=== PATIENT | female | born 1945 | race Caucasian/White ===

== ENCOUNTER → 2016-08-13 | Outpatient (CLI) | payer OTHER ==
--- NOTE | 2016-08-13 17:29 | MA ---
Screening Digital Mammogram With iCAD Analysis Clinical Indications: Routine screening. Her mother was diagnosed with breast cancer in her 80s. Technique: Standard cephalocaudal projections are obtained. Digital breast tomosynthesis was performe d in the MLO projection with reconstruction at 1.0 mm slice thickness and composite MLO views reconst ructed. This examination is processed by the iCAD computer aided detection system. Comparison: July 2015, July 2014, June 2013, May 2012, March 2011, January 2010. Breast density: Type B; Scattered fibroglandular densities. Findings: CAD was reviewed. No masses, suspicious calcifications or secondary signs of malignancy are seen. There has been no significant change in the appearance of either breast. Impression: Negative mammogram. BI-RADS 1. Recommendation: Routine mammographic screening in one year. [facility] will send a result letter to the patient. Negative mammography should not preclude additional workup of a clinically suspicious finding. The patient's information is entered into a reminder system with a target due date for her next mammo gram.
== END ==
LOC: FIMAGING 14:40
DX: Z12.31 Encounter for screening mammogram for malignant neoplasm of breast (principal); Z80.3 Family history of malignant neoplasm of breast
CPT/HCPCS: G0202

== ENCOUNTER → 2017-09-04 | Outpatient (CLI) | payer OTHER | LOC: FIMAGING 12:14 | PROVIDERS: ATTEND Nurse Practitioner | DX: M54.16 Radiculopathy, lumbar region (principal) ==

== ENCOUNTER → 2017-09-10 | Outpatient (CLI) | payer OTHER | LOC: FIMAGING 14:25 | PROVIDERS: ATTEND Family Medicine Sports Medicine | DX: Z12.31 Encounter for screening mammogram for malignant neoplasm of breast (principal); Z80.3 Family history of malignant neoplasm of breast ==

== ENCOUNTER 2017-09-12 10:55 | Inpatient (IN) | payer OTHER ==
--- NOTE | 2017-09-13 14:18 | CPEKG ---
Heart Rate: 68 RR Interval: 882 P-R Interval: 144 QRSD Interval: 96 QT Interval: 400 QTC Interval: 426 P [place]: 43 QRS [place]: 9 T Wave [place]: 8 EKG Severity - NORMAL ECG - EKG Impression: SINUS RHYTHM Electronically Signed By: Frantz Hassan 14-Sep-2017 08:22:54
[2017-09-16] MEDS ORDERED: ACETAMINOPHEN 500 MG TAB PO ONE (06:08)
[2017-09-16] MEDS ORDERED: GABAPENTIN 300 MG CAP PO ONE (06:08)
[2017-09-16] MEDS ORDERED: ceFAZolin 2 GM/SWFI 2 GM/20 ML SYR IVP ONE (06:08)
[2017-09-16] MEDS ORDERED: LIDOCAINE 1% 2 ML INJ ID PRN (06:10)
[2017-09-16] MEDS ORDERED: LR 1,000 ML IV ONE (06:10)
[2017-09-16] MEDS ORDERED: CHLORHEXIDINE GLUC HIBICLENS 118 ML BTL TP ONE (06:27)
[2017-09-16] MEDS ORDERED: BUPIVACAINE 0.25% 30 ML SDV ONE ×2 (06:27→08:33)
[2017-09-16] MEDS ORDERED: THROMBIN (BOVINE) 5,000 UNIT VIAL TP ONE (06:27)
[2017-09-16] MEDS ORDERED: BACITRACIN 50,000 UNITS/10 ML SYR IRR ONE (06:28)
--- NOTE | 2017-09-16 06:52 | PDANEPAE ---
ANE Past Medical History - Cardiovascular History Hx Hypertension: Yes Hx Arrhythmias: No Hx Chest Pain: No Hx Coronary Artery / Peripheral Vascular Disease: No Hx CHF / Valvular Disease: No Hx Palpitations: No - Pulmonary History Hx COPD: No Hx Asthma/Reactive Airway Disease: No Hx Recent Upper Respiratory Infection: No Hx Oxygen in Use at Home: No Hx Sleep Apnea: No Sleep Apnea Screening Result - Last Documented: Negative - Neurologic History Hx Cerebrovascular Accident: No Hx Seizures: No Hx Dementia: No - Endocrine History Hx Diabetes: No Hypothyroid: No Hyperthyroid: No Obesity: yes, mild - Renal History Hx Renal Disorders: No - Liver History Hx Hepatic Disorders: No - Neurological & Psychiatric Hx Hx Neurological and Psychiatric Disorders: Yes Neurological / Psychiatric History Comment: fibromyalgia - Cancer History Hx Cancer: Yes Cancer History Comment: basal cell cancer - Congenital Disorder History Hx Congenital Disorders: No - GI History GERD: moderate Hx Gastrointestinal Disorders: Yes Gastrointestinal History Comment: reflux gerd - Other Health History Other Health History: none - Chronic Pain History Chronic Pain: Yes (daily LUA) - Surgical History Prior Surgeries: none ANE Review of Systems Review of Systems: - Exercise capacity METS (RN): 4 METS ANE Patient History - Allergies Allergies/Adverse Reactions: No Known Drug Allergies Allergy (Verified 09/16/17 06:15) bandaid Adverse Reaction (Mild, Uncoded 09/03/17 15:26) - Home Medications Home Medications: Amitriptyline HCl 25 mg PO HS 08/30/17 [Last Taken 09/15/17 20:00] Ascorbic Acid [Vitamin C 500 mg (*)] 4,000 mg PO HS 08/30/17 [Last Taken ] Cholecalciferol Vit D3 [Vitamin D3 2000 units tab (OTC)] 2,000 units PO HS 08/30 [Last Taken 09/09/17] Gabapentin [Neurontin 300 MG (*)] 600 mg PO TID 08/30/17 [Last Taken 09/16/17 05 :00] Herbals/Supplements -Info Only 1 ea PO DAILY 08/30/17 [Last Taken 09/09/17] Lisinopril/Hctz 20/12.5MG [Zestoretic/Prinzide 20/12.5MG (*)] 1 ea PO DAILY [Last Taken 09/14/17 20:00] Multivitamins [Multivitamin (*)] 1 each PO HS 08/30/17 [Last Taken 09/09/17] Omeprazole [Prilosec 20 mg] 20 mg PO DAILY 08/30/17 [Last Taken 09/16/17 05:00] Pravastatin Sodium 20 mg PO HS 08/30/17 [Last Taken 09/14/17 20:00] Vitamin B Complex [Super B-50 Complex] 1 each PO HS 08/30/17 [Last Taken ] - NPO status NPO Since - Liquids (Date): 09/15/17 NPO Since - Liquids (Time): 19:00 NPO Since - Solids (Date): 09/15/17 NPO Since - Solids (Time): 19:00 - Anes Hx Anes Hx: post operative nausea - Smoking Hx Smoking Status: Never smoked Marijuana use: No - Alcohol Use Alcohol Use: Rarely - Family Anes Hx Family Anes Hx: neg - N/A Family Hx Anesthesia Complications: none ANE Labs/Vital Signs - Vital Signs Blood Pressure: 139/78 Heart Rate: 75 Respiratory Rate: 16 O2 Sat (%): 91 Height: 157.48 cm Weight: 86.183 kg ANE Physical Exam - Airway Neck exam: FROM Mallampati Score: Class 2 Mouth exam: normal dental/mouth exam - Pulmonary Pulmonary: no respiratory distress, no rales or rhonchi, clear to auscultation - Cardiovascular Cardiovascular: regular rate and rhythym, no murmur, rub, or gallop - ASA Status ASA Status: II ANE Anesthesia Plan Anesthesia Plan: general endotracheal anesthesia Total IV Anesthesia: No
--- NOTE | 2017-09-16 06:53 | PDHPUP ---
History & Physical Update H&P update statement: This history and physical update is based on an assessment of the patient which was completed after admission or registration (within 24 hours), but prior to the surgery/procedure. H&P update: H&P reviewed & patient examined, no change in patient's condition since H&P completed
[2017-09-16] MEDS ORDERED: fentaNYL 100 MCG/2 ML INJ ONE (07:06)
[2017-09-16] MEDS ORDERED: REMIFENTANIL HCL 1 MG VIAL ONE ×2 (07:06→10:44)
[2017-09-16] MEDS ORDERED: PROPOFOL/EMULSION 500 MG/50 ML BOTTLE IV ONE ×2 (07:06→10:44)
[2017-09-16] MEDS ORDERED: PROPOFOL 200 MG/20 ML VIAL ONE (07:06)
[2017-09-16] MEDS ORDERED: LIDOCAINE 2% 5 ML SDV ONE (07:12)
[2017-09-16] MEDS ORDERED: ONDANSETRON 4 MG/2 ML VIAL ONE (07:13)
[2017-09-16] MEDS ORDERED: DEXAMETHASONE 4 MG/ML VIAL ONE ×2 (07:13→08:40)
[2017-09-16] MEDS ORDERED: ROCURONIUM 50 MG/5 ML VIAL ONE (07:13)
[2017-09-16] MEDS ORDERED: PHENYLEPHRINE HCL 100 MCG/ML SYR ONE ×3 (07:29→10:07)
[2017-09-16] MEDS ORDERED: RANITIDINE 50 MG/2 ML VIAL ONE (07:35)
[2017-09-16] MEDS ORDERED: NALOXONE HCL 0.4 MG/ML INJ IVP PRN ×2 (08:36→08:57)
[2017-09-16] MEDS ORDERED: BISACODYL 10 MG SUPP PR PRN (08:36)
[2017-09-16] MEDS ORDERED: oxyCODONE IR 5 MG TAB PO PRN (08:36)
[2017-09-16] MEDS ORDERED: ONDANSETRON DISINTEGRATING 4 MG TAB PO PRN (08:36)
[2017-09-16] MEDS ORDERED: ACETAMINOPHEN 325 MG TAB PO PRN (08:36)
[2017-09-16] MEDS ORDERED: diphenhydrAMINE 25 MG CAP PO PRN (08:36)
[2017-09-16] MEDS ORDERED: ONDANSETRON 4 MG/2 ML VIAL IVP PRN ×2 (08:36→08:57)
[2017-09-16] MEDS ORDERED: morphINE PCA 30 MG/30 ML PCA IV PRN (08:36)
[2017-09-16] MEDS ORDERED: LACTULOSE 20 GM/30 ML UDCUP PO PRN (08:36)
[2017-09-16] MEDS ORDERED: MAGNESIUM HYDROXIDE 30 ML UDCUP PO PRN (08:36)
[2017-09-16] MEDS ORDERED: ACETAMINOPHEN 500 MG TAB PO PRN (08:57)
[2017-09-16] MEDS ORDERED: LR 500 ML IV PRN (08:57)
[2017-09-16] MEDS ORDERED: OXYCODONE/APAP 5/325 TAB PO PRN (08:57)
[2017-09-16] MEDS ORDERED: HYDROCODONE/APAP 5/325 TAB PO PRN (08:57)
[2017-09-16] MEDS ORDERED: PROMETHAZINE HCL 25 MG/ML INJ IVP PRN (08:57)
[2017-09-16] MEDS ORDERED: fentaNYL 100 MCG/2 ML INJ IVP PRN (08:57)
[2017-09-16] MEDS ORDERED: DIAZEPAM 10 MG/2 ML SYR IVP PRN (08:57)
[2017-09-16] MEDS ORDERED: VASOPRESSIN 20 UNIT/ML VIAL ONE (10:27)
[2017-09-16] MEDS ORDERED: HYDROmorphONE/DILAUDID 2 MG/ML INJ ONE (11:26)
--- NOTE | 2017-09-16 13:00 | POSTANESTH ---
Post Anesthetic Evaluation Cardiovascular Status: Normal, Stable Respiratory Status: Normal, Stable Level of Consciousness/Mental Status: Can Participate in Eval Pain Control: Adequate, Prn Tx Ordered Nausea/Vomiting Control: Adequate, Prn Tx Ordered Complications Possibly Related to Anesthesia: None Noted
--- NOTE | 2017-09-16 13:05 | POSTOPPROG ---
Post Op Note Date of Operation: 09/16/17 Surgeon: Paris Villalta Home Demonstration Agent: Melissa Thao NP Anesthesia: GET(General Endotracheal) Pre-op Diagnosis: Lumbar stenosis Procedure: L4-5 TLIF Inf/Abcess present in the surg proc area at time of surgery?: No Depth: Deep Incisional (Fascial) EBL: 100-500 Total fluids administered: see anesthesia Complications: None Drains: Fredo Santos Date of Surgery: 09/16/17 Post Op Day: 0 Assessment/Plan: 72 yr old s/p L4-5 TLIF with left>right leg pain and lower back pain Plan: -Pain management, MAMMALOGY TEACHER ordered if needed -PT/OT -Wear brace when out of bed, patient already has brace -Post op lumbar xrays in am -Christoph in place -Please call neurosurgery with any questions/concerns Subjective: patient waking up in PACU Objective: Patient waking up in PACU PERRLA No droop 5/5 BUE, BLE Sensation intact to light touch BLE Dressing CDI CHRISTOPH patent Appropriate Neuro Check Frequency Ordered: Yes
--- NOTE | 2017-09-16 13:23 | GOP ---
[f rep st] OPERATIVE REPORT DATE OF OPERATION: 09/16/2017 SURGEON: Bryn Villalta MD PREOPERATIVE DIAGNOSIS: Lumbar spondylolisthesis, L4-L5. Severe lumbar stenosis, L4-5. Bilateral l umbosacral radiculopathy. There is a right synovial cyst L4-5, and severe left lateral recess stenos is L4-5. POSTOPERATIVE DIAGNOSIS: Lumbar spondylolisthesis, L4-L5. Severe lumbar stenosis, L4-5. Bilateral lumbosacral radiculopathy. There is a right synovial cyst L4-5, and severe left lateral recess steno sis L4-5. PROCEDURE PERFORMED: Posterior-lateral and intervertebral arthrodesis with bilateral decompressions, L4-5 (52905), placement of biomechanical intervertebral device L4-5, nonsegmental instrumentation ac ross a single interspace L4-5, same incision bone graft harvest, microscope, spinal stereotaxy, place ment of expandable biomechanical intervertebral device L4-5. FINDINGS: INDICATIONS: The patient is a 72-year-old with bilateral lumbosacral radiculopathy, left more so shawanda n right. An MRI demonstrated spondylolisthesis at L4-5. There was a right-sided synovial cyst at L4 -5 and a left-sided severe lateral recess stenosis with grade 1 spondylolisthesis present. I suggest ed a single-level fusion. She had terrible disk degenerative disease at L2-3 as well, but there were no compressive lesions there and I did not suggest surgery there. The risk of adjacent segment dise ase, nerve injury, spinal fluid leak and continued symptoms were discussed. She knew these risks, sh e did want to proceed. DESCRIPTION OF PROCEDURE: The patient was taken to the operating room, placed in a supine position. General anesthesia was begun. She was flipped prone onto the Fredo table. Care was taken to pad all points of contact. Her back was sterilely prepped and draped in the usual fashion. A localizing x-ray was taken. We had some problems of the median and ulnar somatosensory-evoked potentials origi fadumo, but these were resolved with resolution of her blood pressure. We did make a midline incision that was 5.5 cm; the subcutaneous tissue was dissected using Bovie cau booker down to the fascia and a subperiosteal dissection was made down to the lamina of L4 and L5. A s elf-retaining retractor was placed. A localizing x-ray was taken. We denuded the bilateral very lar ge hypertrophic facets at L4-5. We found our pedicle screw entry zone at L4-L5, decorticated the tra nsverse processes and attached the Stealth reference frame. We then performed an O-arm spin. Using frameless Stealth stereotaxy, placed pedicle screws bilaterally at L4 and L5. We then took 30 mm danny s, placed them down across the screws and reduced the spondylolisthesis at L4-5, and final tightened the cap screws. An x-ray was taken. There was complete reduction in the original position, but I di d not like it, it was slightly kyphotic, so we released the distraction slightly between L4 and L5, a nd this led to a slight recurrence of a millimeter or 2 of spondylolisthesis, but I was more happy wi th the spinal curvature. We removed all the soft tissue from the bone at L4-5, harvested the inferior L4 spinous process for a utologous grafting purposes. We drilled the bilateral laminae at L4-5 and harvested this bone for au tologous grafting purposes. Under the scope, we performed bilateral laminectomies. There was a larg e right synovial cyst coming off the L4 arch on the right-hand side that could be seen on the MRI. I t measured a little over a centimeter in size. It was firmly adherent to the dura. We circumferenti ally decompressed around the cyst and tried to pull it off the dura itself, and it was very firmly ad herent. We then opened the cyst and completely removed all of the cyst contents; in fact, from withi n the cyst, we could appreciate the dura centrally and the only attachment was the residual cyst wall right at the edge of the cyst, where this was left to remain. We performed radical bilateral decompressions on each side. We swept the left L5 nerve root medially , and under the microscope, removed the L4-5 disk and the cartilaginous endplates. We placed bone au tograft and BMP into the disk space, followed by a 9 x 23 mm Elevate cage. It was expanded under flu oroscopic guidance. I was happy with the position of the device. We then decorticated all remaining bone posterolaterally bilaterally, and then placed bony autograft and BMP posterolaterally bilateral ly, used 2.0 mg on the entire surgery. We then placed a subfascial drain and closed the incision in multiple layers using Vicryl sutures, a running PDS was placed in the skin. The patient was reversed from anesthesia, extubated, and transferred to recovery room in stable condition. There were no com plications. COMPLICATIONS: None. INSTRUMENTATION USED: [employer] Med[employer]ronic 4.75 mm Solera, and we used a 7 x 23 mm Elevate cage. We used 2.0 m g of BMP, 4.0 mg were opened; as noted, 2.0 mg were used, we wasted 2 mg. /[id number]/MODL
[2017-09-16 13:56] VITALS: RESP 16
[2017-09-16] MEDS: ceFAZolin 2 GM/DEXTROSE 100 ML IV SCH ×2 (14:19→22:29)
[2017-09-16] MEDS: GABAPENTIN 300 MG CAP PO SCH ×2 (14:19→22:28)
[2017-09-16] MEDS: ACETAMINOPHEN 500 MG TAB PO SCH ×2 (14:19→22:28)
[2017-09-16] MEDS: FAMOTIDINE 20 MG TAB PO SCH ×2 (14:20→20:33)
[2017-09-16] MEDS: SENNOSIDES/DOCUSATE SODIUM TAB PO SCH ×2 (14:20→20:33)
[2017-09-16] MEDS: POLYETHYLENE GLYCOL 3350 17 GM PKT PO PRN (20:33)
[2017-09-16] MEDS: METHOCARBAMOL 750 MG TAB PO PRN (20:33)
[2017-09-17] MEDS: ACETAMINOPHEN 500 MG TAB PO SCH (05:46)
[2017-09-17] MEDS: GABAPENTIN 300 MG CAP PO SCH (05:46)
[2017-09-17 05:55] LABS: PLATELET COUNT 204 10^3/uL (150-400)
[2017-09-17 07:45] VITALS: O2SAT 95
[2017-09-17] MEDS: SENNOSIDES/DOCUSATE SODIUM TAB PO SCH (07:57)
[2017-09-17] MEDS: FAMOTIDINE 20 MG TAB PO SCH (07:58)
[2017-09-17] MEDS: POLYETHYLENE GLYCOL 3350 17 GM PKT PO PRN (07:58)
[2017-09-17] MEDS: METHOCARBAMOL 750 MG TAB PO PRN (07:59)
--- NOTE | 2017-09-17 08:26 | NEUSURGPN ---
Date of Surgery: 09/16/17 Post Op Day: 1 Assessment/Plan: 72 yr old s/p L4-5 TLIF with left>right leg pain and lower back pain POD#1 Plan: -Pain management, patients pain currently well controlled with oral medications -PT/OT eval/treat -Wear brace when out of bed, patient already has brace -Post op lumbar xrays pending -DC YO this am -Patient may possibly dc home later today pending therapies recs and xrays -Please call neurosurgery with any questions/concerns Patient was seen by Dr Villalta as well Subjective: Feeling good, left leg pain and back pain improved Objective: AxO x3 PERRLA 5/5 BUE, BLE Sensation intact to light touch BLE Dressing CDI YO patent Neuro Check Frequency: per routine Urinary Catheter in Place: No Catheter Insertion Date: 09/16/17 - Physician Discussed Patient with Dr.: Villalta Patient Seen by : [facility] Neurosurgery Physical Exam - Vitals, I&O, Labs I and O 09/16/17 09/17/17 09/18/17 05:59 05:59 05:59 Intake Total 5750 Output Total 2065 Balance 3685 Weight 86.183 kg Intake: Oral (ml) 1950 IV Intake (ml) 3800 Output: Urine (ml) 1885 Catheter 1885 YO Drain Output (ml) 180 #1 Posterior Back Fredo 180 Santos Other: Intake Quantity Yes Sufficient Number of Voids Catheter 1 Vital Signs Temp Pulse Resp BP Pulse Ox 36.6 C 72 16 100/50 L 95 09/17/17 07:44 09/17/17 07:44 09/17/17 07:44 09/17/17 07:44 09/17/17 07:44 Laboratory Results 09/17/17 05:00 09/17/17 05:00 ICD10 Worksheet Patient Problems: Problems Problem Status Onset Lumbar stenosis with neurogenic claudication Acute - ICD10 Problem Qualifiers (1) Lumbar stenosis with neurogenic claudication
[2017-09-17] MEDS ORDERED: LISINOPRIL/HCTZ 20/12.5MG 1 EA TAB PO SCH (09:00)
[2017-09-17] MEDS ORDERED: PANTOPRAZOLE SODIUM 40 MG TAB PO SCH (09:00)
[2017-09-17] MEDS ORDERED: NON-FORMULARY NEW DRUG (Omeprazole [Prilosec 20 Mg] 20 MG) PO SCH (09:00)
[2017-09-17 12:18] VITALS: BP 124/67; PULSE 75; TEMP 97.7
--- NOTE | 2017-09-17 14:58 | ASDISCHSUM ---
Discharge Information Plan Status:Home with No Needs Medically Cleared to Leave: Discharge Date:09/17/2017 02:09 PM CM D/C Disposition: ADT D/C Disposition:Home, Routine, Self-Care Projected Discharge Date:09/17/2017 02:09 PM Transportation at D/C: Discharge Delay Reason: Follow-Up Date:09/17/2017 02:09 PM Discharge Slot: Final Diagnosis: Placement Information Patient Contact Information Contact Name:TEDDY Relationship:Sister Address:[address] City:[place] Alternate Phone: [facility]/Zip Code:[place] [address] Email: Financial Information Financial Class:Medicare Primary Plan Desc:MEDICARE INPATIENT Primary Plan Number:[id number] Secondary Plan Desc:[employer] Secondary Plan Number:[id number] Assessment Information [facility] CM Progress Note CM Note CM Note Notes: Pt medically stable for d/c, no CM d/c needs identified. PT/OT clear pt. Date Signed: 09/17/2017 02:58 PM Electronically Signed By:DYLLAN Lemos Intervention Information
[2017-09-17] MEDS ORDERED: AMITRIPTYLINE HCL 25 MG TAB PO SCH (21:00)
[2017-09-17] MEDS ORDERED: PRAVASTATIN SODIUM 20 MG TAB PO SCH (21:00)
[2017-09-19] MEDS ORDERED: ENOXAPARIN 40 MG/0.4 ML SYR SC SCH (09:00)
--- NOTE | 2017-09-21 09:36 | GDS ---
[f rep st] DISCHARGE SUMMARY PRIMARY DIAGNOSIS: Lumbar stenosis. OPERATIONS AND PROCEDURES: L4-5 TLIF on September 16, 2017, with Dr. Bryn Villalta. HOSPITAL COURSE: Patient is a 72-year-old female who was admitted following a L4-[address] Bryn Villalta on September 16, 2017. Preoperatively, she had left greater than right leg pain as well as lower back pain. She tolerated the procedure well, without complication, and her pain was well charissa ged with oral medications. The patient was evaluated by Physical Therapy and Occupational Therapy an d met their criteria to discharge home on postop day #1. The patient's leg pain was gone and she had expected incisional pain upon discharge. COMPLICATIONS: None. CONSULTS: Physical Therapy, Occupational Therapy. DISCHARGE CONDITION: Stable. The patient was discharged home on September 17, 2017. Her pain is wel l managed with oral medications and her left quad and hip pain has been resolved. Patient has expect ed incisional pain at this time. Postop lumbar x-rays demonstrated stable hardware placement without any evidence of complication. Patient's YO was removed the morning following her surgery. DISCHARGE INSTRUCTIONS: Patient was instructed to avoid any bending or lifting greater than 10 pound s or twisting. Patient is to wear her brace when she is out of bed. She is scheduled to follow up i n our office in 2 weeks for her routine postop visit, where we will remove her Steri-Strips at that t thao. She is instructed to call our office with any questions or concerns prior to her appointment. /[id number]/MODL
== END 2017-09-17 14:09 | disposition home or self-care (01) | DRG 460 ==
LOC: F3N 10:55 → UNDOADMIN 10:55 → F3N 09-16 05:41
PROVIDERS: ADMIT Neurological Surgery; ATTEND Neurological Surgery
PROC: 3E0U0GB Introduction of Recombinant Bone Morphogenetic Protein into Joints, Open Approach (ICD-10-PCS; principal; 2017-09-16 07:30)
PROC: 0SG00AJ Fusion of Lumbar Vertebral Joint with Interbody Fusion Device, Posterior Approach, Anterior Column, Open Approach (ICD-10-PCS; principal; 2017-09-16 07:30)
PROC: 01NB0ZZ Release Lumbar Nerve, Open Approach (ICD-10-PCS; principal; 2017-09-16 07:30)
PROC: 0QB00ZZ Excision of Lumbar Vertebra, Open Approach (ICD-10-PCS; principal; 2017-09-16 07:30)
DX: M43.16 Spondylolisthesis, lumbar region (principal); M54.16 Radiculopathy, lumbar region; M48.061 Spinal stenosis, lumbar region without neurogenic claudication; M71.38 Other bursal cyst, other site
CPT/HCPCS: 97161-GP; 97166-GO; C1713; G8978-GP-CI; G8979-GP-CI; G8980-GP-CI; G8987-GO-CI; G8988-GO-CI; G8989-GO-CI; J0171; J0690; J1100; J1170; J2370; J2405; J2704; J2780; J3010

== ENCOUNTER → 2017-09-20 | Outpatient (CLI) | payer OTHER | LOC: FIMAGING 15:44 → EDSTATUS 15:45 | PROVIDERS: ATTEND Nurse Practitioner | DX: Z09 Encounter for follow-up examination after completed treatment for conditions other than malignant neoplasm (principal); Z98.1 Arthrodesis status; M51.36 Other intervertebral disc degeneration, lumbar region; I70.0 Atherosclerosis of aorta ==

== ENCOUNTER → 2017-11-04 | Outpatient (CLI) | payer OTHER | LOC: FIMAGING 12:19 | PROVIDERS: ATTEND Nurse Practitioner | DX: Z09 Encounter for follow-up examination after completed treatment for conditions other than malignant neoplasm (principal); Z98.1 Arthrodesis status ==

== ENCOUNTER → 2017-11-27 | Outpatient (CLI) | payer OTHER | LOC: FIMAGING 16:01 | PROVIDERS: ATTEND Nurse Practitioner | DX: M43.16 Spondylolisthesis, lumbar region (principal); M48.061 Spinal stenosis, lumbar region without neurogenic claudication; M99.73 Connective tissue and disc stenosis of intervertebral foramina of lumbar region; Z98.1 Arthrodesis status ==

== ENCOUNTER 2018-02-03 05:43 | Inpatient (IN) | payer OTHER ==
[2018-02-03] MEDS ORDERED: ceFAZolin 2 GM/DEXTROSE 100 ML IV ONE (05:58)
[2018-02-03] MEDS ORDERED: ACETAMINOPHEN 500 MG TAB PO ONE (05:58)
[2018-02-03] MEDS ORDERED: GABAPENTIN 300 MG CAP PO ONE (05:58)
[2018-02-03] MEDS ORDERED: LR 1,000 ML IV ONE (06:00)
[2018-02-03] MEDS ORDERED: BUPIVACAINE 0.25% 30 ML SDV ONE (06:51)
[2018-02-03] MEDS ORDERED: CHLORHEXIDINE GLUC HIBICLENS 118 ML BTL TP ONE ×2 (06:51→07:07)
[2018-02-03] MEDS ORDERED: EPINEPHrine 1 MG/ML INJ ONE (06:52)
[2018-02-03] MEDS ORDERED: BACITRACIN 50,000 UNITS/10 ML SYR IRR ONE ×2 (06:52→10:26)
[2018-02-03] MEDS ORDERED: HYDROmorphONE/DILAUDID 1 MG/ML INJ IVP PRN (07:06)
[2018-02-03] MEDS ORDERED: ALBUTEROL 3 ML DEYVIAL IH PRN (07:06)
[2018-02-03] MEDS ORDERED: oxyCODONE IR 5 MG TAB PO PRN (07:06)
[2018-02-03] MEDS ORDERED: MIDAZOLAM 2 MG/2 ML VIAL IVP ONE (07:06)
[2018-02-03] MEDS ORDERED: LR 500 ML IV PRN (07:06)
[2018-02-03] MEDS ORDERED: ONDANSETRON 4 MG/2 ML VIAL IVP PRN ×2 (07:06→07:41)
[2018-02-03] MEDS ORDERED: NALOXONE HCL 0.4 MG/ML INJ IVP PRN (07:06)
[2018-02-03] MEDS ORDERED: DEXAMETHASONE 4 MG/ML VIAL IVP PRN (07:06)
--- NOTE | 2018-02-03 07:08 | PDANEPAE ---
ANE History of Present Illness L2-5 Fusion ANE Past Medical History - Cardiovascular History Hx Hypertension: Yes Hx Arrhythmias: No Hx Chest Pain: No Hx Coronary Artery / Peripheral Vascular Disease: No Hx CHF / Valvular Disease: No Hx Palpitations: No Cardiovascular History Comment: HYPERLIPIDEMIA - Pulmonary History Hx COPD: No Hx Asthma/Reactive Airway Disease: No Hx Recent Upper Respiratory Infection: No Hx Oxygen in Use at Home: No Hx Sleep Apnea: No Sleep Apnea Screening Result - Last Documented: Negative - Neurologic History Hx Cerebrovascular Accident: No Hx Seizures: No Hx Dementia: No - Endocrine History Hx Diabetes: No - Renal History Hx Renal Disorders: No - Liver History Hx Hepatic Disorders: No - Neurological & Psychiatric Hx Hx Neurological and Psychiatric Disorders: Yes Neurological / Psychiatric History Comment: fibromyalgia - Cancer History Hx Cancer: Yes Cancer History Comment: basal cell cancer - Congenital Disorder History Hx Congenital Disorders: No - GI History Hx Gastrointestinal Disorders: Yes Gastrointestinal History Comment: gerd - Other Health History Other Health History: none - Chronic Pain History Chronic Pain: Yes (BACK & FIBROMYALGIA) - Surgical History Prior Surgeries: LUMBAR SPINE L4/5 09/2017 ANE Review of Systems Review of Systems: - Exercise capacity METS (RN): 4 METS ANE Patient History - Allergies Allergies/Adverse Reactions: No Known Drug Allergies Allergy (Verified 09/16/17 06:15) bandaid Adverse Reaction (Mild, Uncoded 09/03/17 15:26) - Home Medications Home Medications: Gabapentin [Neurontin 300 MG (*)] 900 mg PO BID 08/30/17 [Last Taken 02/02/18] Herbals/Supplements -Info Only 1 ea PO DAILY 08/30/17 [Last Taken 09/09/17] Lisinopril/Hctz 20/12.5MG [Zestoretic/Prinzide 20/12.5MG (*)] 1 ea PO DAILY [Last Taken 02/02/18] Omeprazole [Prilosec 20 mg] 20 mg PO DAILY 08/30/17 [Last Taken 02/03/18 05:00] Pravastatin Sodium 20 mg PO HS 08/30/17 [Last Taken 02/01/18] Acetaminophen/Diphenhydramine [Acetaminophen Pm Caplet] 1 tab PO BID@11,21 01/20 [Last Taken 02/01/18] Amitriptyline HCl [Elavil 25 mg (RX)] 25 mg PO HS 01/20/18 [Last Taken 02/02/18] - NPO status NPO Since - Liquids (Date): 02/03/18 NPO Since - Liquids (Time): 05:00 NPO Since - Solids (Date): 02/02/18 NPO Since - Solids (Time): 19:00 - Smoking Hx Smoking Status: Never smoked - Family Anes Hx Family Hx Anesthesia Complications: none ANE Labs/Vital Signs - Vital Signs Blood Pressure: 117/70 Heart Rate: 72 Respiratory Rate: 16 O2 Sat (%): 90 Height: 157.48 cm Weight: 86.183 kg ANE Physical Exam - Airway Neck exam: FROM Mallampati Score: Class 2 Mouth exam: normal dental/mouth exam - Pulmonary Pulmonary: clear to auscultation - Cardiovascular Cardiovascular: regular rate and rhythym - ASA Status ASA Status: III ANE Anesthesia Plan Anesthesia Plan: general endotracheal anesthesia
[2018-02-03] MEDS ORDERED: HYDROmorphONE/DILAUDID 2 MG/ML INJ ONE (07:14)
[2018-02-03] MEDS ORDERED: PROPOFOL 200 MG/20 ML VIAL ONE (07:16)
[2018-02-03] MEDS ORDERED: ROCURONIUM 100 MG/10 ML VIAL ONE (07:17)
[2018-02-03] MEDS ORDERED: ONDANSETRON 4 MG/2 ML VIAL ONE (07:17)
[2018-02-03] MEDS ORDERED: RANITIDINE 50 MG/2 ML VIAL ONE (07:17)
[2018-02-03] MEDS ORDERED: DEXAMETHASONE 4 MG/ML VIAL ONE ×2 (07:18)
[2018-02-03] MEDS ORDERED: MIDAZOLAM 2 MG/2 ML VIAL ONE (07:19)
[2018-02-03] MEDS ORDERED: diphenhydrAMINE 25 MG CAP PO PRN (07:41)
[2018-02-03] MEDS ORDERED: POLYETHYLENE GLYCOL 3350 17 GM PKT PO PRN (07:41)
[2018-02-03] MEDS ORDERED: MAGNESIUM HYDROXIDE 30 ML UDCUP PO PRN (07:41)
[2018-02-03] MEDS ORDERED: morphINE PCA 30 MG/30 ML PCA IV PRN (07:41)
[2018-02-03] MEDS ORDERED: ONDANSETRON DISINTEGRATING 4 MG TAB PO PRN (07:41)
[2018-02-03] MEDS ORDERED: BISACODYL 10 MG SUPP PR PRN (07:41)
[2018-02-03] MEDS ORDERED: LACTULOSE 20 GM/30 ML UDCUP PO PRN (07:41)
[2018-02-03] MEDS ORDERED: VASOPRESSIN 20 UNIT/ML VIAL ONE (08:23)
[2018-02-03] MEDS ORDERED: THROMBIN (BOVINE) 20,000 UNIT VIAL TP ONE (09:17)
--- NOTE | 2018-02-03 12:43 | POSTOPPROG ---
Post Op Note Date of Operation: 02/03/18 Surgeon: Paris Villalta Coremaker Experimental: Melissa Thao NP Anesthesiologist: Lluvia Anesthesia: GET(General Endotracheal) Pre-op Diagnosis: Lumbar stenosis Procedure: L2-3 TLIF with PSF L2-L5 Inf/Abcess present in the surg proc area at time of surgery?: No Depth: Deep Incisional (Fascial) EBL: 100-500 Total fluids administered: see anesthesia Complications: none Drains: Fredo Santos Date of Surgery: 02/03/18 Post Op Day: 0 Assessment/Plan: Assessment: 72 yr old F s/p L2-3 TLIF with PSF L2-5 Plan: -Admit to med surg -PT/OT -Xrays in am -pain management, plaster foreman order if needed -wear brace when out of bed Please call neurosurgery with any questions/concerns Subjective: waking up in pacu Objective: waking up in pacu no droop MAEx4 5/5 BLE Dressing CDI YO patent Appropriate Neuro Check Frequency Ordered: Yes
[2018-02-03] MEDS ORDERED: fentaNYL 100 MCG/2 ML INJ ONE (13:10)
[2018-02-03] MEDS: fentaNYL 100 MCG/2 ML INJ IVP PRN ×3 (13:11→13:24)
--- NOTE | 2018-02-03 13:32 | PDMN ---
Medical Necessity Medical necessity: IP surgery per [facility] cpt [id number] TLIF
--- NOTE | 2018-02-03 13:46 | GOP ---
[f rep st] OPERATIVE REPORT DATE OF OPERATION: 02/03/2018 SURGEON: Bryn Villalta MD NEUROSURGEON: Bryn Villalta MD TRUCKSMITH: Melissa Thao NP PREOPERATIVE DIAGNOSIS: Lumbar degenerative disk disease with retrolisthesis L2 on L3. Prior lumbar fusion L4-5. Severe axial low back pain. POSTOPERATIVE DIAGNOSIS: Lumbar degenerative disk disease with retrolisthesis L2 on L3. Prior lumbar fusion L4-5. Severe axial low back pain. PROCEDURE PERFORMED: Removal of posterior segmental hardware at L4-5 across a single interspace, posterolateral arthrodesis only at L3-4, posterolateral and intervertebral arthrodesis with decompression at L2-3 ([id number], [id number]), posterior segmental instrumentation at L2, L3, L4, L5 ([id number]), placement of biomechanical intervertebral device at L2-3 ([id number]), spinal stereotaxy, microscope, same incision bone graft harvest. FINDINGS: ESTIMATED BLOOD LOSS: 200 cc. INDICATIONS: The patient is a 72-year-old female who 5 months ago underwent a successful fusion at L4-5. At that time, she had severe axial low back pain, but she also had radiating leg pain and she had a spondylolisthesis at L4-5, and we did a single-level fusion. Her leg pain resolved, and she did quite well with regard to that, but her back pain did not improve. In fact, it began getting worse following that surgery. We thought that this was related to the perioperative recovery, but the back pain was not improving and really was quite severe. She did have retrolisthesis of L2 on L3, severe Modic changes at that level, and she had some facet arthropathy at L3-4, but no significant obvious instability or stenosis there. She did have some lateral recess stenosis at L2-3 due to a prolapsed disk at that level, principally due to the retrolisthesis. I suggested a fusion at L2-3 and a posterolateral arthrodesis only at L3-4. I did not feel that her pain generator was likely to be at L3-4, but I felt that given the need for fusion at L2-3, a prior fusion at L4-5, I thought that the best way to approach this was to simply do a posterolateral at L3-4. I did not intend on a decompression at that level. She understood that we may go through all of this and she would end up with an L2 to L5 fusion and that she may or may not improve. She knew there was a risk of screw and hardware malposition, spinal fluid leak, nerve injury. She knew this may not work at all to take away her back pain, but it was the next most reasonable step at this juncture. The risk of pseudoarthrosis and the possible need for additional adjacent segment fusion was discussed. She did want to proceed. DESCRIPTION OF PROCEDURE: The patient was taken to the operating room, placed in the supine position. General anesthesia was begun. She was flipped prone onto the Juanjose frame. Care was taken to pad all points of contact. We did monitor her median and ulnar nerves as well as her SSEPs from the lower extremities, and we did notice that she was losing her ulnar nerve potentials in the left upper extremity with this positioning, and we repositioned again before starting the surgery. With this repositioning guided by neuromonitoring , we were able to get the ulnar nerve back and it remained stable throughout the rest of the case. She was sterilely prepped and draped in the usual fashion. A localizing x-ray was taken with the O-arm. We opened the prior incision and doubled its length. The original incision measured about 5 cm, 6 cm. The total length of this incision was 12 cm. The subcutaneous tissue was dissected using Bovie cautery down through the fascia, and a subperiosteal dissection was made down the L2-3, L3-4 lamina. The prior hardware was exposed. We removed the cap screws at L4-5. The screws were solid. We removed the danny on the right-hand side. We even had bone growing over the danny. We removed both rods completely and interrogated each of the L4-5 screws, and they were all solid. There was none of them that were loose. We toggled their heads in preparation for a segmental fusion. We then attached the Stealth reference frame to the spinous process of L3. We performed an O-arm spin, and using frame of the Stealth stereotaxy, we placed pedicle screws bilaterally at L2 and L3. We then took a 90 mm danny on the left and a 100 mm danny on the right. We placed a pre bent danny down between L2 and L5 on the left. We increased this lordosis slightly. We placed cap screws distracted slightly on the left and then placed a 100 mm danny on the right and distracted more substantially on the right. We got a total reduction of her coronal plane deformity and opened up the disk space at L2-3, and we slightly reduced the retrolisthesis, although not completely at L2-3. We then removed all the soft tissue off the bone, L2-3 , L3-4. We then harvested the L3 and the inferior L2 spinous process. We then decorticated the facet joints bilaterally at L2-3, L3-4, and also decorticated the posterolateral fusion mass at L4-5 so that this could participate in bony union to our new construct. We then performed a right hemilaminectomy of L2 and complete facetectomy of L2-3 on the right-hand side. We exposed the exiting L2 nerve root, decompressed the lateral thecal sac under the operating microscope, swept the L3 nerve root medially, removed the disk and the cartilaginous endplates at L2. We then chose a 28 mm x 7 mm expandable device. We roughened the subchondral bone. We placed a large amount of bony autograft into the disk space and then under fluoroscopic guidance, inserted a 7 x 28 mm device. It was wholly located within the disk space, and this was verified visually as well as by x-ray. We expanded the device and shot a final x-ray. I was happy with the positioning of our hardware. We then finished decorticating all the remaining posterolateral bone bilaterally from L2 to L5. We performed posterolateral fusion only at L3-4. We did not do a laminectomy at L3-4. We did do a complete laminectomy and a posterolateral and an intervertebral arthrodesis at L2-3. All the cap screws had been torqued to company specification. We placed bone autograft and BMP posterolaterally bilaterally from L2 to L5. We then placed a subfascial drain, closed the incision in multiple layers using Vicryl sutures, placed Steri-Strips in the skin. We reversed the patient from anesthesia, extubated, and transferred to recovery room in stable condition. There were no complications. COMPLICATIONS: None. /[id number]/MODL MTDD
[2018-02-03] MEDS: GABAPENTIN 300 MG CAP PO SCH ×4 (13:47→21:54)
[2018-02-03] MEDS: LISINOPRIL/HCTZ 20/12.5MG 1 EA TAB PO SCH (13:47)
[2018-02-03] MEDS: FAMOTIDINE 20 MG TAB PO SCH ×2 (13:47→21:42)
[2018-02-03] MEDS: SENNOSIDES/DOCUSATE SODIUM TAB PO SCH ×2 (13:48→21:41)
[2018-02-03] MEDS: PANTOPRAZOLE SODIUM 40 MG TAB PO SCH (13:48)
--- NOTE | 2018-02-03 13:49 | POSTANESTH ---
Post Anesthetic Evaluation Cardiovascular Status: Normal, Stable Respiratory Status: Normal, Stable Level of Consciousness/Mental Status: Can Participate in Eval, Alert and Oriented Pain Control: Adequate, Prn Tx Ordered Nausea/Vomiting Control: Adequate, Prn Tx Ordered Complications Possibly Related to Anesthesia: None Noted
[2018-02-03] MEDS: NS 1,000 ML IV SCH ×2 (14:56→21:58)
[2018-02-03] MEDS: ceFAZolin 2 GM/DEXTROSE 100 ML IV SCH ×2 (14:57→21:40)
[2018-02-03] MEDS ORDERED: PROMETHAZINE HCL 25 MG/ML INJ IVP PRN (15:06)
[2018-02-03] MEDS: ACETAMINOPHEN 500 MG TAB PO SCH ×2 (18:06→21:42)
[2018-02-03] MEDS: METHOCARBAMOL 750 MG TAB PO PRN ×2 (18:07→21:42)
[2018-02-03] MEDS: oxyCODONE IR 5 MG TAB PO PRN (18:24)
[2018-02-03] MEDS: PRAVASTATIN SODIUM 20 MG TAB PO SCH (21:42)
[2018-02-03] MEDS: AMITRIPTYLINE HCL 25 MG TAB PO SCH (21:42)
[2018-02-04] MEDS: oxyCODONE IR 5 MG TAB PO PRN ×4 (02:38→19:53)
[2018-02-04 04:31] LABS: PLATELET COUNT 180 10^3/uL (150-400)
[2018-02-04] MEDS: GABAPENTIN 300 MG CAP PO SCH ×3 (05:05→19:53)
[2018-02-04] MEDS: METHOCARBAMOL 750 MG TAB PO PRN (05:05)
[2018-02-04] MEDS: ACETAMINOPHEN 500 MG TAB PO SCH ×3 (05:05→21:40)
[2018-02-04] MEDS: NS 1,000 ML IV SCH (06:20)
[2018-02-04] MEDS: FAMOTIDINE 20 MG TAB PO SCH ×2 (09:05→19:53)
[2018-02-04] MEDS: PANTOPRAZOLE SODIUM 40 MG TAB PO SCH (09:05)
[2018-02-04] MEDS: SENNOSIDES/DOCUSATE SODIUM TAB PO SCH ×2 (09:05→19:53)
[2018-02-04] MEDS: LISINOPRIL/HCTZ 20/12.5MG 1 EA TAB PO SCH (09:11)
--- NOTE | 2018-02-04 13:44 | NEUSURGPN ---
Date of Surgery: 02/03/18 Post Op Day: 1 Assessment/Plan: Assessment: 72 yr old F s/p L2-3 TLIF with PSF L2-5 POD#1 Plan: -PT/OT -Xrays show stable hardware placment -pain management, patient doing well with current oral regimen -wear brace when out of bed -Leave YO in today Please call neurosurgery with any questions/concerns Subjective: Lower back pain improved, expected incisional pain Objective: AxO x3 5/5 BLE Sensation intact to light touch BLE Dressing/incision CDI YO patent Neuro Check Frequency: per routine Urinary Catheter in Place: No - Physician Discussed Patient with .: Pawan Patient Seen by : Pawan Neurosurgery Physical Exam - Vitals, I&O, Labs I and O 02/03/18 02/04/18 02/05/18 05:59 05:59 05:59 Intake Total 3625 1800 Output Total 1825 70 Balance 1800 1730 Weight 86.183 kg Intake: Oral (ml) 925 IV Intake (ml) 2450 IV Infused (ml) 250 1800 Ns 1,000 ml @ 125 mls/hr 150 1600 IV CONT DENNYS Rx#: [id number] ceFAZolin 2 GM/DEXTROSE 100 200 100 ml @ 200 mls/hr IV Q8HRS DENNYS Rx#:[id number] Output: Urine (ml) 1175 Catheter 1175 Estimated Blood Loss (ml) 250 YO Drain Output (ml) 400 70 #1 Right Posterior Back 400 70 Fredo Santos Other: Intake Quantity No Sufficient Number of Voids Catheter 1 Toilet 1 Vital Signs Temp Pulse Resp BP Pulse Ox 36.5 C 66 16 105/53 L 93 02/04/18 11:21 02/04/18 11:21 02/04/18 11:21 02/04/18 11:21 02/04/18 11:21 Laboratory Results 02/04/18 04:16 02/04/18 04:16 ICD10 Worksheet Patient Problems: Problems Problem Status Onset Lumbar stenosis with neurogenic claudication Acute
--- NOTE | 2018-02-04 16:03 | ASMTCMCOM ---
CM Note CM Note Notes: Pt had planend back surgery, resides alone. OT/PT rec home. Pt has her DME. Pt likely d/c home independent and CM will continue to follow progress. Date Signed: 02/04/2018 04:02 PM Electronically Signed By:DYLLAN Lemos
[2018-02-04] MEDS: AMITRIPTYLINE HCL 25 MG TAB PO SCH (19:53)
[2018-02-04] MEDS: PRAVASTATIN SODIUM 20 MG TAB PO SCH (19:53)
[2018-02-05] MEDS: ACETAMINOPHEN 500 MG TAB PO SCH (05:51)
[2018-02-05 08:05] VITALS: BP 114/43
[2018-02-05] MEDS: LISINOPRIL/HCTZ 20/12.5MG 1 EA TAB PO SCH (08:05)
[2018-02-05] MEDS: FAMOTIDINE 20 MG TAB PO SCH (08:06)
[2018-02-05] MEDS: SENNOSIDES/DOCUSATE SODIUM TAB PO SCH (08:06)
[2018-02-05] MEDS: GABAPENTIN 300 MG CAP PO SCH (08:06)
[2018-02-05] MEDS: METHOCARBAMOL 750 MG TAB PO PRN (08:07)
[2018-02-05] MEDS: PANTOPRAZOLE SODIUM 40 MG TAB PO SCH (08:07)
[2018-02-05] MEDS: oxyCODONE IR 5 MG TAB PO PRN (08:10)
--- NOTE | 2018-02-05 08:45 | GPROG ---
[f rep st] PROGRESS NOTE DATE OF SERVICE: 02/05/2018 The patient was seen and examined and is awake and alert and moving all extremities well. She has no complaints. She is ambulating and her incision looks good. She wants to go home today. She will b e set up for discharge. Her YO will be removed. /[id number]/MODL
--- NOTE | 2018-02-05 10:00 | ASMTLACE ---
LACE Length of stay for Answers: 2 days current admission Acuity / Level of Answers: Yes Care: Did the patient have an inpatient admission? Comorbidities - select Answers: Any tumor (including all that apply lymphoma or leukemia) Opioid dependence / Chronic pain Other Notes: HTN; Fibromyalgia # of Emergency department Answers: 0 visits in the last 6 months Score: 12 Date Signed: 02/05/2018 09:59 AM Electronically Signed By:Gwendolyn Williamson RN
--- NOTE | 2018-02-05 10:08 | ASDISCHSUM ---
Discharge Information Plan Status:Home with No Needs Medically Cleared to Leave:02/05/2018 Discharge Date:02/05/2018 CM D/C Disposition:Home, Routine, Self-Care ADT D/C Disposition:Home, Routine, Self-Care Projected Discharge Date:02/05/2018 Transportation at D/C:Friend Discharge Delay Reason: Follow-Up Date:02/05/2018 Discharge Slot:1 - 8:01 am - 12:00 noon Final Diagnosis:Lumbar degenerative disc disease with retrolisthesis L2 on L3, prior lumbar fusion, severe back pain Placement Information Patient Contact Information Contact Name:TEDDY Relationship:Sister Address:[address] City:[place] Alternate Phone: State/Zip Code:[place] [address] Email: Financial Information Financial Class:Medicare Primary Plan Desc:MEDICARE INPATIENT Primary Plan Number:[id number] Secondary Plan Desc:[facility] Secondary Plan Number:[id number] Assessment Information LACE LACE Length of stay for Answers: 2 days current admission Acuity / Level of Answers: Yes Care: Did the patient have an inpatient admission? Comorbidities - select Answers: Any tumor (including all that apply lymphoma or leukemia) Opioid dependence / Chronic pain Other Notes: HTN; Fibromyalgia # of Emergency department Answers: 0 visits in the last 6 months Score: 12 Date Signed: 02/05/2018 09:59 AM Electronically Signed By:Gwendolyn Williamson RN [facility] Progress Note CM Note CM Note Notes: Pt had planend back surgery, resides alone. OT/PT rec home. Pt has her DME. Pt likely d/c home independent and CM will continue to follow progress. Date Signed: 02/04/2018 04:02 PM Electronically Signed By:DYLLAN Lemos Case Management Discharge Plan Note Case Management Discharge Discharge Order Complete? Answers: Yes Patient to Obtain Answers: Independently Medications Transportation Arranged Answers: Family/Friends Transport will Pick (Date 02/05/2018 12:00 AM & Time) EMTALA Complete Answers: No Notes: N/A Case Management Transport Answers: No Notes: N/A Form Complete Faxed Final Orders Answers: No Notes: N/A Family Notified Answers: No Notes: Pt to notify Discharge Comments Notes: Reviewed chart, spoke with AMANDA Fernando regarding discharge plan of care, pt's progress. Pt s/p planned back surgery for lumbar degenerative disc disease L2 on L3; hx includes prior lumbar fusion and severe back pain. Per Kassie, pt to discharge home independently with no identified needs. PT/OT cleared. Met with pt, she denies needs. IM signed. Pt to follow up as directed. CM available for any further issues or concerns. Discharge Plan: Home Independently Date Signed: 02/05/2018 10:06 AM Electronically Signed By:Gwendolyn Williamson RN Intervention Information Intervention Type:*IM-Signed Date of Service:02/05/2018 09:57 AM Patient Type:Inpatient Staff Member:AMANDA Williamson Taylor Hours: Discipline: Severity: Comment:
[2018-02-06] MEDS ORDERED: ENOXAPARIN 40 MG/0.4 ML SYR SC SCH (09:00)
--- NOTE | 2018-02-24 17:24 | GDS ---
[f rep st] DISCHARGE SUMMARY PRIMARY DIAGNOSIS: Lumbar stenosis. OPERATIONS AND PROCEDURES: On February 03, 2018, L2-3 translumbar interbody fusion with posterior spinal fusion of L2-L5. CONSULTS: Physical Therapy and Occupational Therapy. COMPLICATIONS: None. DISCHARGE CONDITION: Good, stable. DISCHARGE MEDICATIONS: See discharge medication list DISCHARGE INSTRUCTIONS: The patient is to avoid any bending or twisting at the waist. She is to avoid any lifting greater than 10 pounds. The patient is to wear her brace when out of bed. Okay to not wear her brace when she is showering. The patient may remove the dressing on postop day 3 and leave Steri- Strips in place. Okay to shower on postop day 3. The patient is scheduled for a followup postoperative visit in 2 weeks. The patient was instructed to call our office with any questions or concerns in the meantime. /[id number]/MODL MTDD
== END 2018-02-05 11:16 | disposition home or self-care (01) | DRG 455 ==
LOC: F3N 05:43
PROVIDERS: ADMIT Neurological Surgery; ATTEND Neurological Surgery
DX: M48.061 Spinal stenosis, lumbar region without neurogenic claudication (principal); I10 Essential (primary) hypertension; E78.5 Hyperlipidemia, unspecified; K21.9 Gastro-esophageal reflux disease without esophagitis
CPT/HCPCS: 97116-GP; 97161-GP; 97166-GO; 97530-GP; C1713; G8978-GP-CI; G8979-GP-CI; G8980-GP-CI; G8987-GO-CI; G8988-GO-CI; G8989-GO-CI; J0171; J0690; J1100; J1170; J2250; J2405; J2550; J2704; J2780; J3010

== ENCOUNTER 2018-02-15 15:15 | Emergency (ER) | payer OTHER ==
[2018-02-15] MEDS ORDERED: ONDANSETRON 4 MG/2 ML VIAL IVP ONE (15:42)
[2018-02-15] MEDS ORDERED: HYDROmorphONE/DILAUDID 2 MG/ML INJ IVP ONE (15:44)
[2018-02-15] MEDS ORDERED: NS 1,000 ML IV ONE ×2 (15:44)
--- NOTE | 2018-02-15 15:57 | EDPHY ---
H & P Stated Complaint: nausea,vomiting,burning and frequency with urination Time Seen by Provider: 02/15/18 15:33 HPI/ROS: CHIEF COMPLAINT: Vomiting, back pain, dysuria HISTORY OF PRESENT ILLNESS: Patient is a 72-year-old female who had a lumbar laminectomy February 03. She was recovering well but then yesterday began to notice some burning with urination. She has had history of urinary tract infections and was concerned because she was catheterized during the surgery. She called her primary who called in a prescription for antibiotics. She does not remember the name. She took a single dose around 430 last night and about 2 hr later became nauseous and threw up. She attempted to take her evening pain and blood pressure medications but threw those up as well. She has not taken her medications today. Now she has increasing back pain due to not taking her medications. Her nausea has improved. She also complains of incontinence of urine when she stands up. She thinks that this is the urine infection. She does not have any weakness or numbness in her legs or feet. No paresthesias in her groin. Her daughter reports that she felt warm this morning but they did not take her temperature. No diarrhea. REVIEW OF SYSTEMS: Constitutional: denies: chills, fever, recent illness, recent injury EENTM: denies: blurred vision, double vision, nose congestion Respiratory: denies: cough, shortness of breath Cardiac: denies: chest pain, irregular heart rate, lightheadedness, palpitations Gastrointestinal/Abdominal: See HPI Genitourinary: See HPI Musculoskeletal: denies: joint pain, muscle pain Skin: denies: lesions, rash, jaundice, bruising Neurological: denies: headache, numbness, paresthesia, tingling, dizziness, weakness Hematologic/Lymphatic: denies: blood clots, easy bleeding, easy bruising Immunologic/allergic: denies: HIV/AIDS, transplant EXAM: GENERAL: Well-appearing, well-nourished and in no acute distress. HEAD: Atraumatic, normocephalic. EYES: Pupils equal round and reactive to light, extraocular movements intact, sclera anicteric, conjunctiva are normal. ENT: TMs normal, nares patent, oropharynx clear without exudates. Moist mucous membranes. NECK: Normal range of motion, supple without lymphadenopathy or JVD. LUNGS: Breath sounds clear to auscultation bilaterally and equal. No wheezes rales or rhonchi. HEART: Regular rate and rhythm without murmurs, rubs or gallops. ABDOMEN: Soft, nontender, normoactive bowel sounds. No guarding, no rebound. No masses appreciated. BACK: No CVA tenderness, no spinal tenderness, step-offs or deformities EXTREMITIES: Normal range of motion, no pitting or edema. No clubbing or cyanosis. NEUROLOGICAL: Cranial nerves II through XII grossly intact. Normal speech, normal gait. 5/5 strength, normal movement in all extremities, normal sensation PSYCH: Normal mood, normal affect. SKIN: Warm, dry, normal turgor, no visible rashes or lesions. Source: Patient Exam Limitations: No limitations - Personal History Current Tetanus Diphtheria and Acellular Pertussis (TDAP): Yes Tetanus Vaccine Date: unsure - Medical/Surgical History Hx Asthma: No Hx Chronic Respiratory Disease: No Hx Diabetes: No Hx Cardiac Disease: No Hx Renal Disease: No Hx Cirrhosis: No Hx Alcoholism: No Hx HIV/AIDS: No Hx Splenectomy or Spleen Trauma: No Other PMH: hypertension, gerd, hyperlipidemia, fibromyalgia, chronic back pain, basal cell carcinoma, bladder and urinary tract infections,laminectomy - Family History Significant Family History: No pertinent family hx - Social History Smoking Status: Never smoked Alcohol Use: None Constitutional: Initial Vital Signs Temperature (C) 37 C 02/15/18 15:27 Heart Rate 98 02/15/18 15:27 Respiratory Rate 16 02/15/18 15:27 Blood Pressure 134/77 H 02/15/18 15:27 O2 Sat (%) 91 L 02/15/18 15:27 O2 Delivery Mode Room Air O2 (L/minute) 2 Allergies/Adverse Reactions: adhesive Allergy (Verified 02/15/18 15:24) Home Medications: Medication Instructions Recorded Gabapentin [Neurontin 300 MG (*)] 900 mg PO BID 08/30/17 Herbals/Supplements -Info Only 1 ea PO DAILY 08/30/17 Lisinopril/Hctz 20/12.5MG 1 ea PO DAILY 08/30/17 [Zestoretic/Prinzide 20/12.5MG (*)] Pravastatin Sodium 20 mg PO HS 08/30/17 Acetaminophen/Diphenhydramine 1 tab PO BID@,21 01/20/18 [Acetaminophen Pm Caplet] Amitriptyline HCl [Elavil] 25 mg PO HS 01/20/18 Cephalexin [Keflex] 500 mg PO TID #21 cap 02/15/18 Ondansetron Odt [Zofran Odt 4 mg 4 mg PO Q4 PRN #20 tab 02/15/18 (RX)] Oxycodone HCl 02/15/18 Robaxin 750 mg (*) 02/15/18 Medical Decision Making ED Course/Re-evaluation: The antibiotics the patient took yesterday were amoxicillin. She does have some leuk esterase in her urine but may be confounded by the single antibiotic dose. The patient is feeling much better after IV hydration and Zofran. We discussed options. I did offer further testing and observation. Her abdominal exam remains benign. Will switch her to Keflex to see if it is better tolerated. Will give her dose of Rocephin while she is here. Will also give her p.o. Challenge. 6:30 p.m. the patient continues to feel well. Abdominal exam is benign. She is tolerating p.o.. She is feeling much better after pain medication. She is eager to go. Discussed indications for returning. Differential Diagnosis: Partial list of the Differential diagnosis considered include but were not limited to; urinary tract infection, gastritis and although unlikely based on the history and physical exam, I also considered obstruction, ischemia, volvulus , diverticulitis spinal cord injury, hematoma, surgical infection. I discussed these differential diagnoses and the plan with the patient as well as the usual and expected course. The patient understands that the diagnosis is provisional and that in medicine we are not always correct and that further workup is often warranted. Usual and customary warnings were given. All of the patient's questions were answered. The patient was instructed to return to the emergency department should the symptoms at all worsen or return, otherwise to followup with the physician as we discussed. - Data Points Laboratory Results: 02/15/18 16:33 POC Sodium 142 mEq/L mEq/L (135-145) POC Potassium 3.7 mEq/L mEq/L (3.3-5.0) POC Chloride 101.0 mEq/L mEq/L (97-110) POC Total CO2 25 mEq/L mEq/L (22-31) POC BUN 8 mg/dL mg/dL (7-23) POC Creatinine 1.2 mg/dL H mg/dL (0.6-1.0) POC Glucose 109 mg/dL H mg/dL (70-100) POC Calcium 9.5 mg/dL mg/dL (8.5-10.4) POC Total Bilirubin 0.6 mg/dL mg/dL (0.1-1.4) POC AST 18 IU/L IU/L (14-46) POC ALT 13 IU/L IU/L (9-52) POC Alk Phosphatase 60 IU/L IU/L (38-126) POC Total Protein 6.4 g/dL g/dL (6.3-8.2) POC Albumin 3.5 g/dL g/dL (3.5-5.0) Medications Given: Discontinued Medications Hydromorphone HCl (Dilaudid) 1 mg IVP EDNOW ONE Stop: 02/15/18 15:45 Last Admin: 02/15/18 16:01 Dose: 1 mg Sodium Chloride (Ns) 1,000 mls @ 0 mls/hr IV EDNOW ONE; Wide Open PRN Reason: Protocol Stop: 02/15/18 15:45 Last Admin: 02/15/18 15:58 Dose: 1,000 mls Sodium Chloride (Ns) 1,000 mls @ 0 mls/hr IV EDNOW ONE; Wide Open PRN Reason: Protocol Stop: 02/15/18 15:45 Last Admin: 02/15/18 16:50 Dose: 1,000 mls Ceftriaxone Sodium/Dextrose (Rocephin 1 Gm (Premix)) 50 mls @ 100 mls/hr IV EDNOW ONE PRN Reason: Protocol Stop: 02/15/18 18:16 Last Admin: 02/15/18 17:55 Dose: 50 mls Ceftriaxone Sodium/Dextrose (Rocephin 1 Gm (Premix)) 50 mls @ 100 mls/hr IV EDNOW ONE PRN Reason: Protocol Stop: 02/15/18 18:29 Last Admin: 02/15/18 18:32 Dose: Not Given Ceftriaxone Sodium 1 gm/ (Sodium Chloride) 50 mls @ 100 mls/hr IV EDNOW ONE PRN Reason: Protocol Stop: 02/15/18 18:36 Last Admin: 02/15/18 18:30 Dose: Not Given Ondansetron HCl (Zofran) 4 mg IVP EDNOW ONE Stop: 02/15/18 15:43 Last Admin: 02/15/18 15:58 Dose: 4 mg Ondansetron HCl (Zofran Odt 4 Mg Prepack#2) 1 btl TAKEHOME EDNOW ONE Stop: 02/15/18 18:11 Last Admin: 02/15/18 18:21 Dose: 1 btl Ondansetron HCl (Zofran Odt 4 Mg Prepack#2) 1 btl TAKEHOME EDNOW ONE Stop: 02/15/18 18:21 Last Admin: 02/15/18 18:23 Dose: Not Given Point of Care Test Results: CBC CBC Collection Date 02/15/18 CBC Collection Time 15:55 WBC 10.3 RBC 4.52 PLT 364 Neut # 9.7 Neut 94.2 LYMPH # 0.5 LYMPH 5.3 Chemistry 02/15/18 16:33 POC Sodium 142 mEq/L mEq/L (135-145) POC Potassium 3.7 mEq/L mEq/L (3.3-5.0) POC Chloride 101.0 mEq/L mEq/L (97-110) POC Total CO2 25 mEq/L mEq/L (22-31) POC BUN 8 mg/dL mg/dL (7-23) POC Creatinine 1.2 mg/dL H mg/dL (0.6-1.0) POC Glucose 109 mg/dL H mg/dL (70-100) POC Calcium 9.5 mg/dL mg/dL (8.5-10.4) POC Total Bilirubin 0.6 mg/dL mg/dL (0.1-1.4) POC AST 18 IU/L IU/L (14-46) POC ALT 13 IU/L IU/L (9-52) POC Alk Phosphatase 60 IU/L IU/L (38-126) POC Total Protein 6.4 g/dL g/dL (6.3-8.2) POC Albumin 3.5 g/dL g/dL (3.5-5.0) Urine Dip Collection Date 02/15/18 Collection Time 16:45 Specific [place] (1.002-1.030) 1.015 PH (5.0-7.5) 7.5 Leukocytes (Negative) 1+ Nitrites (Negative) Negative Protein (Negative) Negative Glucose (Negative) Negative Ketones (Negative) Negative Urobilnogen (0.2-1.0 EU) 0.2 Bilirubin (Negative) Negative Blood (Negative) 1+ Departure - Departure Disposition: Home, Routine, Self-Care Clinical Impression: Postoperative pain low back Urinary tract infection Qualifiers: Urinary tract infection type: site unspecified Hematuria presence: without hematuria Qualified Code(s): N39.0 - Urinary tract infection, site not specified Vomiting Qualifiers: Vomiting type: unspecified Vomiting Intractability: non-intractable Nausea presence: with nausea Qualified Code(s): R11.2 - Nausea with vomiting, unspecified Condition: Fair Instructions: Urinary Tract Infection in Women (ED), Acute Nausea and Vomiting (ED) Referrals: Elier Quintana MD [Primary Care Provider] - As per Instructions Prescriptions: Cephalexin [Keflex] 500 mg PO TID #21 cap Ondansetron Odt [Zofran Odt 4 mg (RX)] 4 mg PO Q4 PRN #20 tab PRN Reason: Nausea & Vomiting
[2018-02-15] MEDS ORDERED: cefTRIAXone 1 GM VIAL ONE (17:48)
[2018-02-15] MEDS ORDERED: NS 50 ML BAG IV ONE (17:49)
[2018-02-15] MEDS ORDERED: ONDANSETRON 4MG PREPACK#2 BTL TAKEHOME ONE ×2 (18:10→18:20)
[2018-02-15 18:35] VITALS: BP 107/61
== END 2018-02-15 18:28 | disposition home or self-care (01) ==
LOC: CED 15:15
DX: G89.18 Other acute postprocedural pain (principal); M54.5 Low back pain; N39.0 Urinary tract infection, site not specified; R11.2 Nausea with vomiting, unspecified; E86.9 Volume depletion, unspecified; I10 Essential (primary) hypertension
CPT/HCPCS: 96361; 96365; 96375; 99284; J0696; J1170; J2405; 80053-PO

== ENCOUNTER → 2018-03-20 | Outpatient (CLI) | payer OTHER | LOC: FIMAGING 12:01 | PROVIDERS: ATTEND Nurse Practitioner | DX: Z98.1 Arthrodesis status (principal) ==

== ENCOUNTER → 2018-06-18 | Outpatient (CLI) | payer OTHER | LOC: FIMAGING 11:40 | PROVIDERS: ATTEND Nurse Practitioner | DX: M43.16 Spondylolisthesis, lumbar region (principal); M51.36 Other intervertebral disc degeneration, lumbar region; M54.5 Low back pain; Z98.1 Arthrodesis status ==

== ENCOUNTER → 2018-09-17 | Outpatient (CLI) | payer OTHER | LOC: FIMAGING 14:29 | PROVIDERS: ATTEND Nurse Practitioner | DX: M43.16 Spondylolisthesis, lumbar region (principal); M51.36 Other intervertebral disc degeneration, lumbar region; M54.5 Low back pain; Z98.1 Arthrodesis status ==

== ENCOUNTER → 2018-10-03 | Outpatient (CLI) | payer OTHER | LOC: FIMAGING 14:44 ==

== ENCOUNTER 2018-11-26 05:53 | Inpatient (IN) | payer OTHER ==
[2018-11-26] MEDS ORDERED: ceFAZolin 2 GM/DEXTROSE 100 ML IV ONE (06:07)
[2018-11-26] MEDS ORDERED: GABAPENTIN 300 MG CAP PO ONE (06:07)
[2018-11-26] MEDS ORDERED: ACETAMINOPHEN 500 MG TAB PO ONE (06:07)
[2018-11-26] MEDS ORDERED: LR 1,000 ML IV ONE (06:09)
--- NOTE | 2018-11-26 06:48 | PDANEPAE ---
ANE Past Medical History - Cardiovascular History Hx Hypertension: Yes Hx Arrhythmias: No Hx Chest Pain: No Hx Coronary Artery / Peripheral Vascular Disease: No Hx CHF / Valvular Disease: No Hx Palpitations: No Cardiovascular History Comment: HYPERLIPIDEMIA - Pulmonary History Hx COPD: No Hx Asthma/Reactive Airway Disease: No Hx Recent Upper Respiratory Infection: No Hx Oxygen in Use at Home: No Hx Sleep Apnea: No Sleep Apnea Screening Result - Last Documented: Positive - Neurologic History Hx Cerebrovascular Accident: No Hx Seizures: No Hx Dementia: No - Endocrine History Hx Diabetes: No Hypothyroid: No Hyperthyroid: No Obesity: yes, moderate - Renal History Hx Renal Disorders: No - Liver History Hx Hepatic Disorders: No - Neurological & Psychiatric Hx Hx Neurological and Psychiatric Disorders: Yes Neurological / Psychiatric History Comment: fibromyalgia - Cancer History Hx Cancer: Yes Cancer History Comment: basal cell cancer - Congenital Disorder History Hx Congenital Disorders: No - GI History GERD: moderate Hx Gastrointestinal Disorders: Yes Gastrointestinal History Comment: Hiatal Hernia. IBS - Other Health History Other Health History: NONE - Chronic Pain History Chronic Pain: Yes (BACK & FIBROMYALGIA) - Surgical History Prior Surgeries: LUMBAR SPINE L4/5 09/2017. L2/5 02/2018 ANE Review of Systems Review of Systems: - Exercise capacity Exercise capacity: limited by disability METS (RN): 4 METS ANE Patient History - Allergies Allergies/Adverse Reactions: No Known Allergies Allergy (Verified 11/10/18 11:10) - Home Medications Home Medications: Gabapentin [Neurontin 300 MG (*)] 900 mg PO BID 08/30/17 [Last Taken 11/26/18 05 :00] Herbals/Supplements -Info Only 1 ea PO DAILY 08/30/17 [Last Taken 11/20/18] Lisinopril/Hctz 20/12.5MG [Zestoretic/Prinzide 20/12.5MG (*)] 1 ea PO DAILY [Last Taken 11/25/18] Pravastatin Sodium 20 mg PO HS 08/30/17 [Last Taken 11/25/18] Amitriptyline HCl [Elavil] 25 mg PO HS 01/20/18 [Last Taken 11/25/18] Acetaminophen [Tylenol 325mg (*)] 325 mg PO Q6 PRN 11/10/18 [Last Taken 11/25/18 ] Ascorbic Acid [Vitamin C 500 mg (*)] 4,000 mg PO HS 11/10/18 [Last Taken ] Aspirin [Aspirin 81mg (*)] 81 mg PO HS 11/10/18 [Last Taken 11/20/18] Calcium Carbonate [Oyster Shell Calcium 500 mg (*)] 500 mg PO BID 11/10/18 [ Last Taken 11/20/18] Cholecalciferol Vit D3 [Vitamin D3 2000 units tab (OTC)] 4,000 units PO HS 11/10 [Last Taken 11/20/18] Multivitamins [Multivitamin (*)] 1 each PO HS 11/10/18 [Last Taken 11/20/18] Naproxen Sodium [Aleve 220 MG (*)] 220 mg PO DAILY 11/10/18 [Last Taken 11/20/18 ] Omeprazole 20 mg PO DAILY 11/10/18 [Last Taken 11/26/18 05:00] Vitamin B Complex [Vitamin B Complex (OTC)] 1 each PO HS 11/10/18 [Last Taken ] - NPO status NPO Since - Liquids (Date): 11/26/18 NPO Since - Liquids (Time): 05:00 NPO Since - Solids (Date): 11/25/18 NPO Since - Solids (Time): 21:00 - Anes Hx Anes Hx: no prior problems - Smoking Hx Smoking Status: Never smoked Marijuana use: No - Alcohol Use Alcohol Use: Rarely - Family Anes Hx Family Anes Hx: neg - N/A Family Hx Anesthesia Complications: none ANE Labs/Vital Signs - Vital Signs Blood Pressure: 138/69 Heart Rate: 72 Respiratory Rate: 15 O2 Sat (%): 90 Height: 157.48 cm Weight: 85.275 kg ANE Physical Exam - Airway Neck exam: decreased ROM Mallampati Score: Class 2 Mouth exam: normal dental/mouth exam - Pulmonary Pulmonary: no respiratory distress, no rales or rhonchi, clear to auscultation - Cardiovascular Cardiovascular: regular rate and rhythym, no murmur, rub, or gallop - ASA Status ASA Status: II ANE Anesthesia Plan Anesthesia Plan: general endotracheal anesthesia Total IV Anesthesia: No
[2018-11-26] MEDS ORDERED: THROMBIN (BOVINE) 5,000 UNIT VIAL TP ONE (06:49)
[2018-11-26] MEDS ORDERED: CHLORHEXIDINE GLUC HIBICLENS 118 ML BTL TP ONE (06:49)
[2018-11-26] MEDS ORDERED: BACITRACIN 50,000 UNITS/10 ML SYR IRR ONE (06:50)
[2018-11-26] MEDS ORDERED: BUPIVACAINE/EPI 0.25% 30 ML SDV ONE (06:50)
[2018-11-26] MEDS ORDERED: fentaNYL 100 MCG/2 ML INJ ONE ×3 (07:16→12:10)
[2018-11-26] MEDS ORDERED: REMIFENTANIL HCL 1 MG VIAL ONE ×2 (07:16→10:08)
[2018-11-26] MEDS ORDERED: PROPOFOL/EMULSION 500 MG/50 ML BOTTLE IV ONE ×2 (07:16→10:08)
[2018-11-26] MEDS ORDERED: PROPOFOL 200 MG/20 ML VIAL ONE (07:16)
[2018-11-26] MEDS ORDERED: SUCCINYLCHOLINE CHLORIDE 200 MG/10 ML SYR IVP ONE (07:17)
[2018-11-26] MEDS ORDERED: DEXAMETHASONE 4 MG/ML VIAL ONE (07:17)
[2018-11-26] MEDS ORDERED: ONDANSETRON 4 MG/2 ML VIAL ONE (07:17)
[2018-11-26] MEDS ORDERED: LIDOCAINE 2% 5 ML SDV ONE (07:18)
[2018-11-26] MEDS ORDERED: ROCURONIUM 50 MG/5 ML VIAL ONE (07:18)
[2018-11-26] MEDS ORDERED: ONDANSETRON 4 MG/2 ML VIAL IVP PRN ×2 (07:46→08:32)
[2018-11-26] MEDS ORDERED: HYDROmorphONE/DILAUDID 1 MG/ML INJ IVP PRN ×2 (07:46→08:32)
[2018-11-26] MEDS ORDERED: morphINE PCA 30 MG/30 ML PCA IV PRN (07:46)
[2018-11-26] MEDS ORDERED: ONDANSETRON DISINTEGRATING 4 MG TAB PO PRN (07:46)
[2018-11-26] MEDS ORDERED: BISACODYL 10 MG SUPP PR PRN (07:46)
[2018-11-26] MEDS ORDERED: diphenhydrAMINE 25 MG CAP PO PRN (07:46)
[2018-11-26] MEDS ORDERED: LACTULOSE 20 GM/30 ML UDCUP PO PRN (07:46)
[2018-11-26] MEDS ORDERED: NALOXONE HCL 0.4 MG/ML INJ IVP PRN ×2 (07:46→08:32)
[2018-11-26] MEDS ORDERED: HYDROCODONE/APAP 5/325 TAB PO PRN ×2 (07:46→08:32)
[2018-11-26] MEDS ORDERED: MAGNESIUM HYDROXIDE 30 ML UDCUP PO PRN (07:46)
[2018-11-26] MEDS ORDERED: ePHEDrine SULFATE 25 MG/5 ML SYR ONE ×2 (07:49→08:06)
[2018-11-26] MEDS ORDERED: PHENYLEPHRINE HCL 100 MCG/ML SYR ONE ×2 (07:55→08:54)
[2018-11-26] MEDS ORDERED: NS 1,000 ML IV SCH (08:00)
[2018-11-26] MEDS ORDERED: ACETAMINOPHEN 500 MG TAB PO PRN (08:32)
[2018-11-26] MEDS ORDERED: PROMETHAZINE HCL 25 MG/ML INJ IVP PRN (08:32)
[2018-11-26] MEDS ORDERED: LR 500 ML IV PRN (08:32)
[2018-11-26] MEDS ORDERED: PHENYLEPHRINE HCL 100 MCG/ML SYR IVP PRN (08:32)
[2018-11-26] MEDS ORDERED: DIAZEPAM 10 MG/2 ML SYR IVP PRN (08:32)
--- NOTE | 2018-11-26 11:50 | POSTOPPROG ---
Post Op Note Date of Operation: 11/26/18 Surgeon: Paris Villalta Associate Sales: DINAH Dominguez Anesthesiologist: Grecia Anesthesia: GET(General Endotracheal), Local (Specify) Pre-op Diagnosis: lumbar stenosis L1/2 Post-op Diagnosis: lumbar stenosis L1/2 Indication: BLE pain, stenosis noted on MRI Procedure: TLIF L1/2 with tie into prior fusion Findings: see operative report Inf/Abcess present in the surg proc area at time of surgery?: No Depth: Deep Incisional (Fascial) EBL: 100-500 Total fluids administered: see anesthesia record Complications: none Bowel Protocol: Yes Clean Closure Performed: Yes Drains: Fredo Santos
--- NOTE | 2018-11-26 11:55 | SOAPPROG ---
SOAP Progress Note Assessment/Plan: Post Op Visit: S: Awake and alert. NAD. Pt with expected lower back pain O: AFVSS/PERRLA/EOMI no droop CN 2-12 grossly intact +lt touch 5/5 BUE/BLE = CDI YO in place A/P 73 yo female that is s/p TLIF L1/2 with tie into prior fusion -pt with expected lower back pain -PT/OT ordered -brace when out of bed -call with any questions or concerns -pt understands and agrees -pt seen by Dr Villalta as well Objective: Vital Signs Temp Pulse Resp BP Pulse Ox 36.5 C 72 15 138/69 H 90 L 11/26/18 06:23 11/26/18 08:32 11/26/18 08:32 11/26/18 08:32 11/26/18 08:32 ICD10 Worksheet Patient Problems: Problems Problem Status Onset Lumbar radicular pain Acute Lumbar stenosis with neurogenic claudication Acute - ICD10 Problem Qualifiers (1) Lumbar radicular pain
[2018-11-26] MEDS: fentaNYL 100 MCG/2 ML INJ IVP PRN ×3 (12:11→12:40)
--- NOTE | 2018-11-26 12:45 | PDMN ---
Medical Necessity Medical necessity: [facility] IP only surgery; cpt 09965 L1/2 TLIF
--- NOTE | 2018-11-26 13:12 | GOP ---
[f rep st] OPERATIVE REPORT DATE OF OPERATION: 11/26/2018 SURGEON: Bryn Villalta MD NEUROSURGEON: Bryn Villalta MD VENDING TECHNICIAN: Ayden Dominguez PA-C PREOPERATIVE DIAGNOSIS: Lumbar adjacent segment disease, L1-2, with severe stenosis, L1-2, bilateral lumbosacral radiculopathy; prior fusion L2-3, L3-4, L4-5. POSTOPERATIVE DIAGNOSIS: Lumbar adjacent segment disease, L1-2, with severe stenosis, L1-2, bilatera l lumbosacral radiculopathy; prior fusion L2-3, L3-4, L4-5. PROCEDURE PERFORMED: Removal of posterior nonsegmental hardware at L2-3, posterior nonsegmental hard vanegas across the L1 to L3 interspace, posterolateral and intervertebral arthrodesis at L1-2 with bilat eral decompressions at L1-2; placement, of biomechanical intervertebral device, L1-2, same incision b one graft harvest, microscope. FINDINGS: SPECIMENS: None. INDICATIONS: The patient is an elderly female who unfortunately has undergone 2 prior spine surgerie s with me, one was an L4-5 fusion for spondylolisthesis that really did not take away her pain. She had severe disk degenerative disease at L2-3 and she later underwent an L2 to L5 fusion with good cli nical result. She got relief of her pain with this. Over time, however, she developed increasing pa in with radiating pain into her legs and the new MRI that was done had demonstrated the interval deve lopment of severe stenosis at L1-2, above her prior L2 to L5 fusion. This last fusion was done last February. There was no evidence of hardware loosening or complication, and I believe she was fused at L2 -3 and L3-4. Because she had developed symptomatic severe stenosis and she has failed conservative t reatment, I suggested surgery with an adjacent segment fusion, but I discussed this with her, she und erstood that there was chance she would go on to break down on the T12-L1 level on that additional mercer rgery may become required. She knew there was a chance surgery would fail to eliminate her pain. Th e risk of nerve injury, spinal fluid leak, screw and hardware failure or malposition was discussed. She accepted all those risks and she wanted to proceed with surgery. She understood quite well that she may develop additional problems above the fusion or even below and may require additional surgica l intervention for these and she did want to proceed. DESCRIPTION OF PROCEDURE: The patient was taken to the operating room, placed in the supine position . General anesthesia was begun. She was flipped prone onto the Fredo table. Care was taken to pa d all points of contact. Back was then sterilely prepped and draped in the usual fashion. We made a midline incision from the spinous process of T12 down to the spinous process of L2. The subcutaneou s tissue was dissected using the PlasmaBlade, made a subperiosteal dissection down the inferior T12 l matthew. We exposed the T12-L1 facet joint, the L1-L2 facet joint, and then the L3 screws on each side . We exposed the L2 screws on each side. We then cut the rods below the L2 tulip and removed the cu t portion of danny, followed by the screw at the L2-3 level, removing the rostral screws at the L2-3 le augustine. We then attached the Stealth reference frame, and under fluoroscopic guidance, we placed pedicl e screws bilaterally at L1. The pedicles were diminutive. We used a 5.5 mm screw on the left and a 5 mm screw on the right. They were both 45 mm in length and they stimulated at acceptable levels. A n O-arm spin was made and the screws appeared to go right down the barrel of the pedicle without gopal ch of the pedicle wall, but did completely fill the pedicle because of the diminutive size of the ped icles. We then took a danny connector and connected it to the rostral tip of the danny coming out of the L3 tulip and then placed another danny segment down between L1 and L3, placed the cap screws on the co nnectors themselves and then used a distraction between L1 and L2 to increase some of the disk space there, as well as reduce the retrolisthesis that was present. We then placed cap screws at L1, final tightened these according to company specification, final tightened the 2 cap screws in each of the crosslinks. We then removed the soft tissue from the bone at L1 and L2, then harvested the inferior L1 spinous process, a complete L2 spinous process and under the microscope, we performed a laminectom y bilaterally at L1-2 removing the complete left L1-2 facet joint. We removed the rostral lip of the L2 lamina. The dura was patulous. It was bulging out through our laminotomy defect, but I took car e to smooth the bony edge adjacent to the dura there at L2. We mobilized the left L2 nerve root and swept it medially, and coagulated some large epidural veins in the spinal canal, and then under the m icroscope we removed the L1-2 disk completely and roughened the subchondral bone to create arthrodesi s at L1-2. We packed BMP and bone autograft into the disk space, and sized the space and chose a 7 x 28 mm device. It was inserted and expanded under fluoroscopic guidance and it was wholly contained within the disk space without breach in the canal or the neural foramen. I was very happy with the p ositioning of the device. We then decorticated all remaining posterolateral bone bilaterally at L1-2 , L2-3. We placed a subfascial drain and closed the incision in multiple layers using Vicryl sutures . There were no complications. COMPLICATIONS: None. HARDWARE PLACED: Cinecore 5.5 mm Solera system with a titanium danny. This was mated to the DataRPM c 4.75 mm chromium cobalt system. We used a 7 x 28 mm Elevate cage and we used 2 mg of BMP for the s urgery. /[id number]/MODL
[2018-11-26] MEDS: LISINOPRIL/HCTZ 20/12.5MG 1 EA TAB PO SCH (13:16)
[2018-11-26] MEDS: ceFAZolin 2 GM/DEXTROSE 100 ML IV SCH ×2 (13:36→21:19)
[2018-11-26] MEDS: ACETAMINOPHEN 325 MG TAB PO PRN (13:37)
[2018-11-26] MEDS: METHOCARBAMOL 750 MG TAB PO PRN ×2 (13:37→21:14)
[2018-11-26] MEDS: FAMOTIDINE 20 MG TAB PO SCH ×2 (13:37→21:14)
[2018-11-26] MEDS: SENNOSIDES/DOCUSATE SODIUM TAB PO SCH ×2 (13:37→21:14)
[2018-11-26] MEDS: oxyCODONE IR 5 MG TAB PO PRN ×2 (13:38→21:14)
[2018-11-26] MEDS: GABAPENTIN 300 MG CAP PO SCH ×2 (13:39→21:14)
[2018-11-26] MEDS: POLYETHYLENE GLYCOL 3350 17 GM PKT PO PRN (13:44)
[2018-11-26] MEDS: AMITRIPTYLINE HCL 25 MG TAB PO SCH (21:14)
[2018-11-26] MEDS: PRAVASTATIN SODIUM 20 MG TAB PO SCH (21:14)
[2018-11-27 05:16] LABS: PLATELET COUNT 168 10^3/uL (150-400)
[2018-11-27] MEDS: METHOCARBAMOL 750 MG TAB PO PRN ×3 (07:25→23:20)
[2018-11-27] MEDS: oxyCODONE IR 5 MG TAB PO PRN ×4 (07:25→23:20)
--- NOTE | 2018-11-27 07:43 | NEUSURGPN ---
Date of Surgery: 11/26/18 Post Op Day: 1 Assessment/Plan: Assessment: 73 yo female that is s/p TLIF L1/2 with tie into prior fusion Plan: -s/p TLIF L1/2 with tie in fusion: doing well this am. Pt states some mild leg pain but this is better c/w preop -pt with expected lower back pain -PT/OT pending -brace when out of bed -YO in place -post op xrays pending today -call with any questions or concerns -pt understands and agrees -pt seen by Dr Villalta as well Subjective: Awake and alert. NAD. Eating/drinking and voiding. No f/c/n/v/d. Objective: AFVSS/PERRLA/EOMI no droop CN 2-12 grossly intact +lt touch 5/5 BUE/BLE = CDI YO in place Neuro Check Frequency: per routine Urinary Catheter in Place: No - Physician Discussed Patient with : Pawan Patient Seen by : Pawan Neurosurgery Physical Exam - Vitals, I&O, Labs I and O 11/26/18 11/27/18 11/28/18 05:59 05:59 05:59 Intake Total 3400 Output Total 1120 Balance 2280 Weight 85.275 kg Intake: Oral (ml) 500 IV Intake (ml) 2000 IV Infused (ml) 900 Ns 1,000 ml @ 75 mls/hr 800 IV CONT DENNYS Rx#: [id number] ceFAZolin 2 GM/DEXTROSE 100 100 ml @ 200 mls/hr IV Q8HRS DENNYS Rx#:[id number] Output: Urine (ml) 550 Toilet 550 Estimated Blood Loss (ml) 300 Emesis (ml) 0 YO Drain Output (ml) 270 #1 Back Fredo Santos 270 Other: Intake Quantity Yes Sufficient Number of Voids Toilet 1 Number of Stools Toilet 0 Vital Signs Temp Pulse Resp BP Pulse Ox 36.6 C 89 14 96/76 L 91 L 11/27/18 03:09 11/27/18 03:09 11/27/18 03:09 11/27/18 03:09 11/27/18 03:09 Laboratory Results 11/27/18 04:45 11/27/18 04:45 ICD10 Worksheet Patient Problems: Problems Problem Status Onset Lumbar radicular pain Acute Lumbar stenosis with neurogenic claudication Acute - ICD10 Problem Qualifiers (1) Lumbar radicular pain
[2018-11-27] MEDS: PANTOPRAZOLE SODIUM 40 MG TAB PO SCH (08:31)
[2018-11-27] MEDS: GABAPENTIN 300 MG CAP PO SCH ×2 (08:35→20:38)
[2018-11-27] MEDS: FAMOTIDINE 20 MG TAB PO SCH ×2 (08:35→20:36)
[2018-11-27] MEDS: SENNOSIDES/DOCUSATE SODIUM TAB PO SCH ×2 (08:39→20:35)
[2018-11-27] MEDS: LISINOPRIL/HCTZ 20/12.5MG 1 EA TAB PO SCH (08:56)
[2018-11-27] MEDS: ACETAMINOPHEN 325 MG TAB PO PRN ×2 (09:02→13:54)
--- NOTE | 2018-11-27 17:07 | ASMTCMCOM ---
CM Note CM Note Notes: Pt had planned spinal surgery, resides alone. Pt sister to stay with her during recovery. OT rec home, PT rec outpatient. Pt had planned surgery February 2018 at [facility] and d/c independent then. Anticipate pt will d/c when medically stable, no CM d/c needs identified. CM available for changes/needs. Date Signed: 11/27/2018 05:06 PM Electronically Signed By:DYLLAN Leoms
[2018-11-27] MEDS: AMITRIPTYLINE HCL 25 MG TAB PO SCH (20:36)
[2018-11-27] MEDS: PRAVASTATIN SODIUM 20 MG TAB PO SCH (20:36)
[2018-11-28] MEDS: oxyCODONE IR 5 MG TAB PO PRN ×2 (05:54→11:45)
[2018-11-28] MEDS: POLYETHYLENE GLYCOL 3350 17 GM PKT PO PRN (05:55)
[2018-11-28] MEDS: SENNOSIDES/DOCUSATE SODIUM TAB PO SCH (08:49)
[2018-11-28] MEDS: GABAPENTIN 300 MG CAP PO SCH (08:49)
[2018-11-28] MEDS: FAMOTIDINE 20 MG TAB PO SCH (08:50)
[2018-11-28] MEDS: METHOCARBAMOL 750 MG TAB PO PRN ×2 (08:50→11:45)
[2018-11-28] MEDS: PANTOPRAZOLE SODIUM 40 MG TAB PO SCH (08:53)
--- NOTE | 2018-11-28 08:53 | NEUSURGPN ---
Date of Surgery: 11/26/18 Post Op Day: 2 Assessment/Plan: 73 yo female that is s/p TLIF L1/2 with tie into prior fusion POD#2 Plan: -neuro stable, pain controlled -PT/OT -brace when out of bed -Remove YO drain today -post op xrays with hardware in good placement -call with any questions or concerns -discharge to home today Discussed with Dr. Villalta Subjective: Doing well. No LE symptoms. Having localized back pain. Objective: Awake. Alert. PERRL. EOMI Facial expression symmetrical Muscle strength full at 5/5 Incision c/d/i with dressing - Physician Discussed Patient with : Pawan Neurosurgery Physical Exam - Vitals, I&O, Labs I and O 11/27/18 11/28/18 11/29/18 05:59 05:59 05:59 Intake Total 3400 Output Total 1120 1415 Balance 2280 -1415 Weight 85.275 kg Intake: Oral (ml) 500 IV Intake (ml) 2000 IV Infused (ml) 900 Ns 1,000 ml @ 75 mls/hr 800 IV CONT DENNYS Rx#: [id number] ceFAZolin 2 GM/DEXTROSE 100 100 ml @ 200 mls/hr IV Q8HRS DENNYS Rx#:[id number] Output: Urine (ml) 550 1200 Toilet 550 1200 Estimated Blood Loss (ml) 300 Emesis (ml) 0 YO Drain Output (ml) 270 215 #1 Back Fredo Santos 270 215 Other: Intake Quantity Yes Yes Sufficient Number of Voids Toilet 1 2 Number of Stools Toilet 0 Vital Signs Temp Pulse Resp BP Pulse Ox 36.6 C 76 17 115/75 93 11/28/18 07:42 11/28/18 07:42 11/28/18 07:42 11/28/18 07:42 11/28/18 07:42 Laboratory Results 11/27/18 04:45 11/27/18 04:45 ICD10 Worksheet Patient Problems: Problems Problem Status Onset Lumbar radicular pain Acute Lumbar stenosis with neurogenic claudication Acute
[2018-11-28 08:56] VITALS: BP 110/55
--- NOTE | 2018-11-28 09:46 | ASMTLACE ---
LACE Length of stay for Answers: 3 days current admission Acuity / Level of Answers: Yes Care: Did the patient have an inpatient admission? Comorbidities - select Answers: Opioid dependence all that apply / Chronic pain Other Notes: HTN; HLD # of Emergency department Answers: 0 visits in the last 6 months Score: 11 Date Signed: 11/28/2018 09:46 AM Electronically Signed By:DYLLAN Lemos
[2018-11-28] MEDS: LISINOPRIL/HCTZ 20/12.5MG 1 EA TAB PO SCH (12:01)
[2018-11-29] MEDS ORDERED: ENOXAPARIN 40 MG/0.4 ML SYR SC SCH (09:00)
== END 2018-11-28 12:34 | disposition home or self-care (01) | DRG 455 ==
LOC: F3N 05:53
PROVIDERS: ADMIT Neurological Surgery; ATTEND Neurological Surgery
PROC: 00NY0ZZ Release Lumbar Spinal Cord, Open Approach (ICD-10-PCS; principal; 2018-11-26 07:15)
PROC: 8E0WXBF Computer Assisted Procedure of Trunk Region, With Fluoroscopy (ICD-10-PCS; principal; 2018-11-26 07:15)
PROC: 0ST20ZZ Resection of Lumbar Vertebral Disc, Open Approach (ICD-10-PCS; principal; 2018-11-26 07:15)
PROC: 0SG1071 Fusion of 2 or more Lumbar Vertebral Joints with Autologous Tissue Substitute, Posterior Approach, Posterior Column, Open Approach (ICD-10-PCS; principal; 2018-11-26 07:15)
PROC: 4A1004G Monitoring of Central Nervous Electrical Activity, Intraoperative, Open Approach (ICD-10-PCS; principal; 2018-11-26 07:15)
PROC: 0SG00AJ Fusion of Lumbar Vertebral Joint with Interbody Fusion Device, Posterior Approach, Anterior Column, Open Approach (ICD-10-PCS; principal; 2018-11-26 07:15)
PROC: 0SP30AZ Removal of Interbody Fusion Device from Lumbosacral Joint, Open Approach (ICD-10-PCS; principal; 2018-11-26 07:15)
DX: M48.061 Spinal stenosis, lumbar region without neurogenic claudication (principal); M51.16 Intervertebral disc disorders with radiculopathy, lumbar region; Z98.1 Arthrodesis status; I10 Essential (primary) hypertension; E78.5 Hyperlipidemia, unspecified; G47.30 Sleep apnea, unspecified; M79.7 Fibromyalgia; Z85.820 Personal history of malignant melanoma of skin; K44.9 Diaphragmatic hernia without obstruction or gangrene; K58.9 Irritable bowel syndrome, unspecified
CPT/HCPCS: 97161-GP; 97165-GO; 97530-GP; C1713; J0330; J0690; J1100; J2370; J2405; J2704; J3010

== ENCOUNTER → 2019-01-23 | Outpatient (CLI) | payer OTHER | LOC: FIMAGING 12:08 ==